=== PATIENT | male | born 1980 | race Caucasian/White ===

== ENCOUNTER 2024-02-09 18:05 | Emergency (ER) | payer OTHER, BC ==
[~2024-02-09] VITALS: Ht 170.2 cm; Wt 83.5 kg
[2024-02-09] MEDS ORDERED: AMIT25TA19 PO (18:55)
[2024-02-09] MEDS ORDERED: ROSU10TA61 PO (18:55)
[2024-02-09] MEDS ORDERED: RIZA10TA58 PO (18:56)
[2024-02-09 19:33] LABS: BASO % 0.2 % (0.0-1.0); EOS % 0.2 % (0.0-3.0); HEMATOCRIT 43.5 % (42.0-52.0); HEMOGLOBIN 15.4 g/dl (13.5-17.5); LYMPH # 1.7 10^3/uL (1.5-5.0); LYMPH % 10.3 % (24.0-44.0); MEAN CORPUSCULAR HEMOGLOBIN 32.4 pg (27.0-33.0); MEAN CORPUSCULAR HGB CONC 35.4 g/dl (32.0-36.5); MEAN CORPUSCULAR VOLUME 91.4 fl (80.0-96.0); MONO # 1.4 10^3/uL (0.0-0.8); MONO % 8.6 % (2.0-8.0); NEUTROPHILS # 12.9 10^3/uL (1.5-8.5); NEUTROPHILS % 80.2 % (36.0-66.0); PLATELET COUNT, AUTOMATED 311 10^3/uL (150-450); RED BLOOD COUNT 4.76 10^6/uL (4.30-6.10); WHITE BLOOD COUNT 16.1 10^3/uL (4.0-10.0)
[2024-02-09 19:58] LABS: BLOOD UREA NITROGEN 18 MG/DL (9-23); CALCIUM LEVEL 9.9 MG/DL (8.5-10.1); CARBON DIOXIDE LEVEL 23 MMOL/L (20-31); CHLORIDE LEVEL 113 MMOL/L (98-107); CREATININE FOR GFR 1.09 MG/DL (0.70-1.30); GLOMERULAR FILTRATION RATE > 60.0 (>60); GLUCOSE, FASTING 104 MG/DL (60-100); POTASSIUM SERUM 4.1 MMOL/L (3.5-5.1); SODIUM LEVEL 143 MMOL/L (136-145)
[2024-02-09] MEDS: MORPHINE 4 MG/ML 1ML VIAL IV ONE (20:21)
[2024-02-09] MEDS ORDERED: PERC5TAB12 PO (22:06)
[2024-02-09] MEDS: PERCOCET 5MG/325MG TAB PO ONE (22:47)
[2024-02-09 22:55] VITALS: BP 140/66; TEMP 97.6; O2SAT 99
== END 2024-02-09 22:57 | disposition home or self-care (01) ==
LOC: M ED 18:05
DX: M25.511 Pain in right shoulder (principal); V86.55XA Driver of 3- or 4- wheeled all-terrain vehicle (ATV) injured in nontraffic accident, initial encounter; Y92.9 Unspecified place or not applicable; Y93.9 Activity, unspecified; Y99.9 Unspecified external cause status

== ENCOUNTER → 2024-05-16 | Outpatient (CLI) | payer OTHER, BC ==
[~2024-05-16] MED LIST: AMIT25TA19 PO; PERC5TAB12 PO; RIZA10TA58 PO; ROSU10TA61 PO
== END ==
LOC: M CARPUL 08:07
PROVIDERS: ATTEND Nurse Practitioner Adult Health
DX: R06.00 Dyspnea, unspecified (principal)